=== PATIENT | male | born 1995 | race Caucasian/White ===

== ENCOUNTER 2020-10-15 04:01 | Emergency (ER) | payer OTHER ==
--- NOTE | 2020-10-15 04:06 | ED Physician Documentation ---
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 He is right hand dominant. Review of Systems Skin: reports: Laceration (s) Neurologic: denies: Focal weakness, Numbness PD PAST MEDICAL HISTORY - Past Medical History Past Medical History: No - Present Medications Home Medications: Ambulatory Orders Medication Instructions Recorded Confirmed No Known Home Medications 10/15/20 10/15/20 - Allergies Allergies/Adverse Reactions: Allergies Allergy/AdvReac Type Severity Reaction Status Date / Time No Known Drug Allergies Allergy Verified 10/15/20 04:10 - Living Situation Living Arrangement: reports: At home PD ED PE NORMAL - Vitals Vital signs reviewed: Yes - General General: Alert and oriented X 3, No acute distress, Well developed/nourished - Derm Derm: Normal color - Neuro Neuro: No motor deficit (FROM and full strength in flexion and extension of left second finger), No sensory deficit (LTS intact left second finger all surfaces) PD ED PE EXPANDED - Extremities KHARI UE/Hands Visual: 1 - laceration (1.5 curvilinear laceration) Results - Vitals Vitals: Vital Signs - 24 hr 10/15/20 10/15/20 10/15/20 04:10 04:13 04:51 Temperature 37 C 37 C 37 C Heart Rate 75 75 75 Respiratory 16 16 17 Rate Blood Pressure 128/75 128/75 129/77 O2 Saturation 100 100 99 Oxygen O2 Source Room air Procedures - Laceration (location) Finger left Dorsal Length in cm: 1.5 Wound type: Linear, Into subcut fat, Clean Neurovascular status: Sensory intact, Motor intact, Vascular intact Tendon involvement: Tendon intact Anesthesia: Lidocaine 1%, With bicarb Wound preparation: Chlorhexadine, Irrigated copiously NS, Wound explored. No: FB identified Skin layer closure: Nylon, Running, Size #-0 - enter number (4-0) Other: Patient tolerated well, No complications, Neurovascular intact, Dressing applied, Tetanus UTD PD MEDICAL DECISION MAKING - ED course Complexity details: considered differential, d/w patient Departure - Departure Disposition: 01 Home, Self Care Clinical Impression: Laceration Condition: Good Instructions: ED Laceration Hand Follow-Up: DEDRA GAYLE MD [Primary Care Provider] - (Follow up with your primary care provider in 7-10 days for removal of the stitches) Discharge Date/Time: 10/15/20 04:51
[2020-10-15] MEDS ORDERED: BUFFERED LIDOCAINE 10 ML SYRINGE IU STA (04:13)
[2020-10-15 04:53] VITALS: BP 129/77
== END 2020-10-15 04:51 | disposition home or self-care (01) ==
LOC: ED 04:01
DX: S61.211A Laceration without foreign body of left index finger without damage to nail, initial encounter (principal); W26.0XXA Contact with knife, initial encounter; Y93.G1 Activity, food preparation and clean up; Y92.009 Unspecified place in unspecified non-institutional (private) residence as the place of occurrence of the external cause
CPT/HCPCS: 12011; 99282